=== PATIENT | male | born 1985 | race African-American/Black ===

== ENCOUNTER 2016-12-06 13:29 | Emergency (ER) | payer MEDICAID ==
[~2016-12-06] VITALS: Ht 182.9 cm; Wt 96.0 kg
[2016-12-06 14:21] VITALS: BP 134/86
== END 2016-12-06 18:15 | disposition left against medical advice (07) ==
LOC: ER 14:37
DX: Z53.21 Procedure and treatment not carried out due to patient leaving prior to being seen by health care provider (principal)